=== PATIENT | female | born 1930 | race African-American/Black ===

== ENCOUNTER 2018-11-21 12:40 | Emergency (ER) | payer MEDICARE, OTHER ==
[~2018-11-21] VITALS: Ht 167.6 cm; Wt 82.0 kg
[~2018-11-21 12:40] MED LIST: AMLO2.5T45 PO; LEVO75TA7 PO; LOSA100T14 PO
[2018-11-21] MEDS ORDERED: ALBUTEROL (0.083%) 2.5MG/3ML NEB HHN STA (13:24)
[2018-11-21] MEDS ORDERED: IPRATROPIUM BROMIDE (0.02%) 0.5MG/2.5ML NEB HHN STA (13:24)
[2018-11-21 14:09] LABS: CHLORIDE 107 mEq/L (98-107)
[2018-11-21 14:13] LABS: BASOPHILS % 0.6 % (0.0-2.0); HEMATOCRIT. 37.9 % (36.0-48.0); HEMOGLOBIN. 13.2 g/dL (12.0-16.0); LYMPHOCYTES % 7.1 % (20.0-50.0); MEAN CORPUSCULAR HEMOGLOBIN 28.4 pg (28.0-32.0); MEAN CORPUSCULAR VOLUME 81.7 fL (81.0-99.0); MEAN PLATELET VOLUME 8.4 fl (7.4-10.4); MONOCYTES % 13.3 % (2.0-8.0); PLATELET 342 x1000/uL (130-400); RED BLOOD CELL COUNT 4.64 mill/uL (4.2-5.4); RED CELL DISTRIBUTION WIDTH 16.1 % (11.6-14.6)
[2018-11-21] MEDS ORDERED: SODIUM CHLORIDE 0.9% 500 ML IV ONE (15:45)
[2018-11-21] MEDS ORDERED: LEVOFLOXACIN 500MG PREMIX 100 ML IV ONE (15:45)
[2018-11-21] MEDS ORDERED: METHYLPREDNISOLONE SOD SUCC 125 MG/2 ML VIAL IV ONE (16:30)
[2018-11-21] MEDS ORDERED: ALBUTEROL (0.5%) 2.5MG/0.5ML NEB HHN ONE (16:30)
[2018-11-21 22:15] VITALS: BP 136/55
== END 2018-11-21 22:34 | disposition short-term general hospital (02) ==
LOC: ER 12:40 → EDBEDREQ 15:40 → ER 22:34 → CANBEDREQ 11-22 02:11
DX: J18.9 Pneumonia, unspecified organism (principal); J44.1 Chronic obstructive pulmonary disease with (acute) exacerbation; I10 Essential (primary) hypertension; Z86.73 Personal history of transient ischemic attack (TIA), and cerebral infarction without residual deficits; Z85.038 Personal history of other malignant neoplasm of large intestine; Z90.49 Acquired absence of other specified parts of digestive tract
CPT/HCPCS: 36415; 71045; 80053; 83880; 84484; 85025; 87040; 87804; 93005; 94640; 96365; 96366; 96375; 99285; J1956; J2930; J7040; J7611